=== PATIENT | male | born 1965 | race Caucasian/White ===

== ENCOUNTER 2017-03-10 14:37 | Observation (INO) | payer OTHER ==
[~2017-03-10] VITALS: Ht 182.9 cm; Wt 112.0 kg
[~2017-03-10 14:37] MED LIST: ALLO100 PO; HYDR1TAB94 PO; LEVSOD150 PO; LISI5 PO; LORA.5 PO; NAPR375 PO; Norco 10-325 T1 EACH PO; OXYACE5T PO; PROM25 PO; RXOXYACE PO
[2017-03-10 15:56] LABS: BASOPHILS ABSOLUTE AUTO 0.04 K/mm3 (0.00-0.23); BASOPHILS PERCENT AUTO 1 % (0-2); EOSINOPHILS ABSOLUTE AUTO 0.12 K/mm3 (0.00-0.68); EOSINOPHILS PERCENT AUTO 2 % (0-6); Hematocrit 43.3 % (37.0-53.0); Hemoglobin 14.3 g/dL (13.5-17.5); IMMATURE GRAN ABSOLUTE AUTO 0.04 K/mm3 (0.00-0.10); IMMATURE GRAN PERCENT AUTO 1 % (0-1); LYMPHOCYTES ABSOLUTE AUTO 1.96 K/mm3 (0.84-5.20); LYMPHOCYTES PERCENT AUTO 30 % (21-46); MONOCYTES ABSOLUTE AUTO 0.44 K/mm3 (0.16-1.47); MONOCYTES PERCENT AUTO 7 % (4-13); Mean Corpuscular HGB 29.7 pg (26.0-34.0); Mean Corpuscular Volume 90 fL (80-100); Mean Platelet Volume 11.4 fL (9.1-12.4); NEUTROPHILS ABSOLUTE AUTO 3.86 K/mm3 (1.96-9.15); NEUTROPHILS PERCENT AUTO 60 % (41-73); Platelet Count 341 K/mm3 (150-400); RDW Coefficient Variation 12.5 % (11.7-14.2); RDW Standard Deviation 41.4 fL (35.1-46.3); Red Blood Cell Count 4.82 M/mm3 (4.30-5.90); White Blood Cell Count 6.46 K/mm3 (4.00-11.30)
[2017-03-10 16:06] LABS: Albumin, Blood 3.8 g/dL (3.4-5.0); Albumin/Globulin Ratio 0.9 (0.8-1.8); Bilirubin, Total 0.4 mg/dL (0.1-1.0); Bun/Creatinine Ratio 10.8 (12.0-20.0); Calcium, Blood 8.8 mg/dL (8.5-10.1); Creatinine, Blood 1.48 mg/dL (0.60-1.20); Globulin, Blood 4.2 g/dL (2.2-4.0); Potassium, Blood 3.7 mmol/L (3.5-5.5)
[2017-03-10] MEDS ORDERED: [UNRECOGNIZED DRUG - OTHER] PO (21:33)
[2017-03-10] MEDS ORDERED: FISH OIL 1,2001 EACH PO (21:35)
[2017-03-10] MEDS ORDERED: FENO48 PO (21:35)
[2017-03-10] MEDS ORDERED: CHOL10002 PO (21:35)
[2017-03-10] MEDS ORDERED: ALPR.5 PO (21:37)
[2017-03-11] MEDS ORDERED: HYDR1TAB94 PO (13:51)
[2017-03-11] MEDS ORDERED: CEPH500 PO (13:52)
== END 2017-03-11 14:10 | disposition home or self-care (01) ==
LOC: ER 14:37 → SURS 14:38
PROVIDERS: Internal Medicine; Orthopaedic Surgery
PROC: 0HDGXZZ Extraction of Left Hand Skin, External Approach (ICD-10-PCS; principal; 2017-03-10 19:00)
DX: S61.432A Puncture wound without foreign body of left hand, initial encounter (principal); I12.9 Hypertensive chronic kidney disease with stage 1 through stage 4 chronic kidney disease, or unspecified chronic kidney disease; N18.3 Chronic kidney disease, stage 3 (moderate); E03.9 Hypothyroidism, unspecified; F41.9 Anxiety disorder, unspecified; F17.220 Nicotine dependence, chewing tobacco, uncomplicated; Z87.442 Personal history of urinary calculi; Z79.899 Other long term (current) drug therapy; W32.0XXA Accidental handgun discharge, initial encounter
CPT/HCPCS: 36415; 73130; 73200; 80053; 85025; 96365; 96374; 96375; 96376; 99285; G0378; J0330; J0690; J1100; J1170; J2250; J2405; J2765; J3010; J7030

== ENCOUNTER 2020-02-05 04:49 | Emergency (ER) | payer OTHER ==
[~2020-02-05] VITALS: Ht 182.9 cm; Wt 113.4 kg
[~2020-02-05 04:49] MED LIST changes: +ALPR.5 PO; +CEPH500 PO; +CHOL10002 PO; +FENO48 PO; +FISH OIL 1,2001 EACH PO; +[UNRECOGNIZED DRUG - OTHER] PO
[2020-02-05 05:46] LABS: BASOPHILS ABSOLUTE AUTO 0.09 K/mm3 (0.00-0.23); BASOPHILS PERCENT AUTO 1 % (0-2); EOSINOPHILS PERCENT AUTO 1 % (0-6); Hematocrit 42.9 % (37.0-53.0); Hemoglobin 14.1 g/dL (13.5-17.5); IMMATURE GRAN ABSOLUTE AUTO 0.03 K/mm3 (0.00-0.10); IMMATURE GRAN PERCENT AUTO 0 % (0-1); LYMPHOCYTES ABSOLUTE AUTO 1.94 K/mm3 (0.84-5.20); LYMPHOCYTES PERCENT AUTO 26 % (21-46); MONOCYTES ABSOLUTE AUTO 0.89 K/mm3 (0.16-1.47); MONOCYTES PERCENT AUTO 12 % (4-13); Mean Corpuscular HGB 29.3 pg (26.0-34.0); Mean Corpuscular HGB Conc 32.9 g/dL (31.5-36.5); Mean Corpuscular Volume 89 fL (80-100); Mean Platelet Volume 11.9 fL (9.1-12.4); NEUTROPHILS ABSOLUTE AUTO 4.38 K/mm3 (1.96-9.15); NEUTROPHILS PERCENT AUTO 59 % (41-73); Platelet Count 273 K/mm3 (150-400); RDW Coefficient Variation 11.9 % (11.7-14.2); RDW Standard Deviation 38.5 fL (35.1-46.3); Red Blood Cell Count 4.82 M/mm3 (4.30-5.90); White Blood Cell Count 7.43 K/mm3 (4.00-11.30)
[2020-02-05 06:01] LABS: Alanine Aminotransfer (ALT/SGP 45 U/L (12-78); Albumin, Blood 3.9 g/dL (3.4-5.0); Alk Phos 74 U/L (50-136); Anion Gap 8 mmol/L (6-16); Aspartate Aminotrans (AST/SGOT 32 U/L (12-37); Bilirubin, Total 0.6 mg/dL (0.1-1.0); Blood Urea Nitrogen 21 mg/dL (8-24); Bun/Creatinine Ratio 11.8 (12.0-20.0); CO2, Blood 25 mmol/L (21-32); Calcium, Blood 9.1 mg/dL (8.5-10.1); Chloride, Blood 106 mmol/L (98-108); Creatinine, Blood 1.78 mg/dL (0.60-1.20); Globulin, Blood 4.1 g/dL (2.2-4.0); Glomerular Filtration Rate 43 (60-); Glucose, Blood 146 mg/dL (70-99); Potassium, Blood 3.2 mmol/L (3.5-5.5); Sodium, Blood 139 mmol/L (136-145)
[2020-02-05] MEDS ORDERED: Ativan0.5 MG PO (06:24)
[2020-02-05 06:32] LABS: Troponin I <0.015 ng/mL (0.000-0.040)
== END 2020-02-05 06:28 | disposition home or self-care (01) ==
LOC: ER 04:49
PROVIDERS: Emergency Medicine
DX: F41.9 Anxiety disorder, unspecified (principal); E03.9 Hypothyroidism, unspecified; I12.9 Hypertensive chronic kidney disease with stage 1 through stage 4 chronic kidney disease, or unspecified chronic kidney disease; N18.30 Chronic kidney disease, stage 3 unspecified; I10 Essential (primary) hypertension; E78.5 Hyperlipidemia, unspecified; F17.220 Nicotine dependence, chewing tobacco, uncomplicated; Z79.899 Other long term (current) drug therapy
CPT/HCPCS: 36415; 80053; 83690; 84484; 85025; 93005; 93010; 96374; 99283-25; J2060

== ENCOUNTER 2021-01-13 19:17 | Inpatient (IN) | payer OTHER ==
[~2021-01-13] VITALS: Ht 182.9 cm; Wt 128.4 kg
[~2021-01-13 19:17] MED LIST changes: -ATOR40TA PO; -DEXA6 PO; -NASAL SPRAY88 ML; -THERA-D2000 UNIT PO
[2021-01-13 21:27] LABS: SARS-Cov-2 (COVID-19) PCR, MMC POSITIVE (NEGATIVE)
--- NOTE | 2021-01-14 04:16 | NUR ---
SUMMARY PT ARRIVED TO FLOOR IN NO DISTRESS. PT ON 4LPM NC. PT DENIES SOB. PT SPO2 >92%. PT STATES HE FEELS VERY WEAK. PT HAS SLEPT T/O SHIFT. PT CURRENTLY SLEEPING IN NO DISTRESS. CALL LIGHT IN REACH.
[2021-01-14 07:02] LABS: Anion Gap 7 mmol/L (6-16); Blood Urea Nitrogen 24 mg/dL (8-24); CO2, Blood 25 mmol/L (21-32); Calcium, Blood 8.6 mg/dL (8.5-10.1); Chloride, Blood 102 mmol/L (98-108); Glomerular Filtration Rate 49 (60-); Glucose, Blood 179 mg/dL (70-99); Potassium, Blood 4.3 mmol/L (3.5-5.5); Sodium, Blood 134 mmol/L (136-145); Troponin I <0.015 ng/mL (0.000-0.040)
[2021-01-14 07:25] LABS: Hematocrit 41.4 % (37.0-53.0); Hemoglobin 13.7 g/dL (13.5-17.5); Mean Corpuscular HGB 28.6 pg (26.0-34.0); Mean Corpuscular HGB Conc 33.1 g/dL (31.5-36.5); Mean Corpuscular Volume 86 fL (80-100); Mean Platelet Volume 12.8 fL (9.1-12.4); Platelet Count 206 K/mm3 (150-400); RDW Coefficient Variation 11.7 % (11.7-14.2); RDW Standard Deviation 37.4 fL (35.1-46.3); Red Blood Cell Count 4.79 M/mm3 (4.30-5.90); White Blood Cell Count 4.62 K/mm3 (4.00-11.30)
[2021-01-14 07:50] LABS: BAND PERCENT MAN 1 % (0-8); BASOPHILS PERCENT MAN 0 % (0-2); EOSINOPHILS PERCENT MAN 0 % (0-6); LYMPHOCYTES PERCENT MAN 13 % (21-46); METAMYELOCYTE ABSOLUTE MAN 0.04 K/mm3 (0.00-0.00); METAMYELOCYTE PERCENT MAN 1 % (0-0); MONOCYTES ABSOLUTE MAN 0.23 K/mm3 (0.16-1.47); MONOCYTES PERCENT MAN 5 % (4-13); MYELOCYTE ABSOLUTE MAN 0.04 K/mm3 (0.00-0.00); MYELOCYTE PERCENT MAN 1 % (0-0); NEUTROPHILS ABSOLUTE MAN 3.69 K/mm3 (1.96-9.15); SEG NEUTROPHILS PERCENT MAN 79 % (41-73); TOTAL CELLS COUNTED 100
--- NOTE | 2021-01-14 14:03 | NUR ---
May remove tele for shower Per T.O. from george Boyer to remove tele for shower. Order updated.
--- NOTE | 2021-01-14 16:13 | NUR ---
Shift Summary A/Ox3, pleasant and cooperative. Had shower, sats dropped to mid 80's on 3.5L. Increased oxygen to 6L, sats maintained above 90%. Denies pain, nausea, vomiting, diarrhea. Tele: NSR. Very soft spoken gentleman. Med rec request faxed to [facility]. PO liquid intake remains low, patient reports "not thirsty". Encouraged increased PO fluid intake to maintain optimal renal functions, patient verbalized understanding. No acute changes, biox in place. WCTM.
[2021-01-14] MEDS ORDERED: THERA-D2000 UNIT PO (17:15)
[2021-01-14] MEDS ORDERED: ATOR40TA PO (17:16)
[2021-01-14] MEDS ORDERED: ALLO100 PO (17:16)
[2021-01-14] MEDS ORDERED: FENO48 PO (17:17)
--- NOTE | 2021-01-15 06:23 | NUR ---
PATTERN KEEPER SUMMARY ADMITTED FOR COVID. PT IS FULL CODE. PT RESTING AT 92% ON 4 LITERS THROUGHOUT THE NIGHT. MEDICATED WITH FIRST DOSE OF REMDESIVIR. PT HAS BEEN INDEPENDENT IN THE ROOM WITHOUT COMPLAINTS OF SOB. NO OTHER CONCERNS THIS SHIFT.
--- NOTE | 2021-01-15 18:01 | NUR ---
SHIFT SUMMARY PATIENT ALERT AND ORIENTED, INDEPENDENT IN THE ROOM THIS SHIFT. PATIENT CALM AND COOPERATIVE WITH CARE. PATIENT CONTINUES TO BE ON 4L O2, SATS 88-92 THIS SHIFT. PATIENT ALTERNATES BETWEEN THE BED AND CHAIR. NO ACUTE CHANGES THIS SHIFT. PATIENT CURRENTLY SITTING UP IN BED WATCHING TELEVISION.
--- NOTE | 2021-01-16 04:21 | NUR ---
PT SLEPT WITHOUT DISTRESS. O2 4L NC IN PLACE. SATS 94%% SOB WITH EXERTION. NO EVENTS DURING NIGHT. VSS. MEDS PER MAY. CALL LIGHT WITHIN REACH.
--- NOTE | 2021-01-16 17:25 | NUR ---
SHIFT SUMMARY PATIENT ALERT AND ORIENTED, INDEPENDENT IN THE ROOM THIS SHIFT. PATIENT REMAINS ON 4L O2, O2 SAT IN THE LOW 90S. PATIENT IS CALM AND COOPERATIVE WITH CARE. NO ACUTE CHANGES THIS SHIFT. PATIENT CURRENTLY SITTING UP IN BED TALKING ON THE TELEPHONE.
--- NOTE | 2021-01-17 01:02 | NUR ---
SHIFT SUMMARY AOX4. VSS. DENIES PAIN, N/V. REPORTS BREATHING IS BETTER. SPO2 >92% ON 3.5L O2. LS HAVE FINE CRACKLES IN BASES. E/U RESP. CALL LIGHT IN REACH. HANDED OFF CARE & GAVE REPORT TO LUÍS Del Rio RN.
--- NOTE | 2021-01-17 02:31 | NUR ---
0105 TOOK OVER CARE OF PT FROM KIM, PT LYING IN BED, EYES CLOSED, APPEARS TO BE RESTING. BREATHING IS EVEN, UNLABORED. NO APPARENT SIGNS OF DISTRESS. CALL LIGHT IS IN REACH.
--- NOTE | 2021-01-17 02:46 | NUR ---
PT LYING IN BED, EYES CLOSED, APPEARS TO BE RESTING, BREATHING IS EVEN, UNLABORED. NO APPARENT SIGNS OF DISTRESS. CALL LIGHT IS IN REACH.
--- NOTE | 2021-01-17 04:18 | NUR ---
WARP WORKER CALLED, REPORTED PT NOT COMING IN ON TELE, CHANGED TELE BATTERY, CHECKED TELE PATCHES. FIRE SERVICES PLUMBER REPORTS TELE COMING IN GOOD NOW. PT LYING IN BED, AWAKE, NO APPARENT SIGNS OF DISTRESS. REQUESTED AND RECIEVED ICE WATER. CALL LIGHT IS IN REACH.
--- NOTE | 2021-01-17 04:19 | NUR ---
PT IS AAO X 4, ON 4L NC HUMIDIFIED AT 95%. PT REPORTS SOB IS IMPROVING. TELE NSR.
[2021-01-17 05:15] LABS: Hematocrit 42.7 % (37.0-53.0); Hemoglobin 13.8 g/dL (13.5-17.5); Mean Corpuscular HGB Conc 32.3 g/dL (31.5-36.5); Mean Corpuscular Volume 90 fL (80-100); Mean Platelet Volume 10.3 fL (9.1-12.4); Platelet Count 447 K/mm3 (150-400); RDW Coefficient Variation 11.9 % (11.7-14.2); RDW Standard Deviation 39.2 fL (35.1-46.3); Red Blood Cell Count 4.76 M/mm3 (4.30-5.90); White Blood Cell Count 10.63 K/mm3 (4.00-11.30)
[2021-01-17 05:48] LABS: Albumin, Blood 2.4 g/dL (3.4-5.0); Albumin/Globulin Ratio 0.5 (0.8-1.8); Bilirubin, Total 0.5 mg/dL (0.1-1.0); Bun/Creatinine Ratio 15.8 (12.0-20.0); C-REACTIVE PROTEIN, EXT RANGE 2.8 mg/dL (0.000-0.300); Calcium, Blood 8.7 mg/dL (8.5-10.1); Creatinine, Blood 1.33 mg/dL (0.60-1.20); Globulin, Blood 4.4 g/dL (2.2-4.0); Potassium, Blood 4.4 mmol/L (3.5-5.5); Total Protein, Blood 6.8 g/dL (6.4-8.2)
--- NOTE | 2021-01-17 05:59 | NUR ---
PT LYING IN BED, EYES CLOSED, APPEARS TO BE RESTING. BREATHING IS EVEN, UNLABORED. NO APPARENT SIGNS OF DISTRESS. CALL LIGHT IS IN REACH. NO OTHER CHANGES THIS SHIFT.
--- NOTE | 2021-01-17 17:15 | NUR ---
SHIFT SUMMARY PT AWAKE AT START OF SHIFT, DURING SHIFT REPORT. NO C/O. RESTING QUIETLY, HF. PT INDEPENDENT IN RM AND TO BTHRM NEEDED. CALM, FLAT AFFECT, BUT CO-OP WITH CARE. DR LEIVA IN TO SEE PT THIS AM. O2 INCREASED BACK UP TO 3.5L AT TIMES. SR ON TELE, LATER D/C'D PER ORDERS. NO S/SX OF DISTRESS NOTED. NO C/O SOB AT REST. LUNGS T/O WITH FINE CRACKLES IN THE BASES. PT UP TO SHOWER THIS AFTERNOON. PT REPORTS DOING "FINE" AT THIS TIME. NO C/O. CALL LT IN REACH.
--- NOTE | 2021-01-17 17:41 | NUR ---
PT ON 2L VIA NC STAYING AT 94%.
--- NOTE | 2021-01-18 04:04 | NUR ---
SHIFT SUMMARY PT ALERT AND ORIENTED, RESTING ON BED QUIETLY. NO DISTRESS. CALL LIGHT WHITIN REACH. KEEP MONITORING
[2021-01-18 04:35] LABS: Hematocrit 41.7 % (37.0-53.0); Hemoglobin 13.7 g/dL (13.5-17.5); Mean Corpuscular HGB 29.1 pg (26.0-34.0); Mean Corpuscular HGB Conc 32.9 g/dL (31.5-36.5); Mean Corpuscular Volume 89 fL (80-100); Mean Platelet Volume 10.4 fL (9.1-12.4); Platelet Count 462 K/mm3 (150-400); RDW Coefficient Variation 11.9 % (11.7-14.2); RDW Standard Deviation 38.1 fL (35.1-46.3); White Blood Cell Count 10.99 K/mm3 (4.00-11.30)
[2021-01-18 05:19] LABS: Albumin, Blood 2.5 g/dL (3.4-5.0); Anion Gap 6 mmol/L (6-16); Blood Urea Nitrogen 21 mg/dL (8-24); Bun/Creatinine Ratio 15.9 (12.0-20.0); CO2, Blood 27 mmol/L (21-32); Calcium, Blood 8.9 mg/dL (8.5-10.1); Chloride, Blood 104 mmol/L (98-108); Creatinine, Blood 1.32 mg/dL (0.60-1.20); Ferritin, Serum 469 ng/mL (26-388); Glomerular Filtration Rate 57 (60-); Glucose, Blood 136 mg/dL (70-99); Phosphorus, Blood 4.6 mg/dL (2.5-4.9); Potassium, Blood 4.8 mmol/L (3.5-5.5); Sodium, Blood 137 mmol/L (136-145)
[2021-01-18] MEDS ORDERED: DEXA6 PO (11:21)
[2021-01-18] MEDS ORDERED: NASAL SPRAY88 ML (11:21)
--- NOTE | 2021-01-18 16:41 | NUR ---
PATIENT D/C'D TO HOME. RX MEDICATIONS FAXED TO [facility] ON AUGUSTIN. 4LO2 PORTABLE TANK DELEVERED. O2 CONCENTRATOR TO BE DELEIVERED TO WHERE PATIENT IS STATYING WITH EX . DC INSTRUCTIONS AND EDUCATION DISCUSSED WITH PATIENT AND COPY PROVIDED. PATIENT DENIES ANY FURTHER QUESTIONS OR CONCERNS.
== END 2021-01-18 16:21 | disposition home or self-care (01) | DRG 177 ==
LOC: ER 19:17 → MEDS 22:32
PROVIDERS: Internal Medicine; Physician Assistant; ADMIT Family Medicine
PROC: 8E0ZXY6 Isolation (ICD-10-PCS; principal; 2021-01-13)
PROC: 3E0333Z Introduction of Anti-inflammatory into Peripheral Vein, Percutaneous Approach (ICD-10-PCS; 2021-01-14)
PROC: XW033E5 Introduction of Remdesivir Anti-infective into Peripheral Vein, Percutaneous Approach, New Technology Group 5 (ICD-10-PCS; 2021-01-14)
DX: U07.1 COVID-19 (principal); J12.82 Pneumonia due to coronavirus disease 2019; J96.01 Acute respiratory failure with hypoxia; R65.10 Systemic inflammatory response syndrome (SIRS) of non-infectious origin without acute organ dysfunction; E03.9 Hypothyroidism, unspecified; R79.1 Abnormal coagulation profile; I12.9 Hypertensive chronic kidney disease with stage 1 through stage 4 chronic kidney disease, or unspecified chronic kidney disease; N18.30 Chronic kidney disease, stage 3 unspecified; M10.9 Gout, unspecified; Z28.21 Immunization not carried out because of patient refusal; E78.5 Hyperlipidemia, unspecified; Z79.899 Other long term (current) drug therapy
CPT/HCPCS: 36415; 80048; 80053; 80069; 82728; 84484; 85025; 85027; 85379; 86140; 93005; 93010; 94761; 94762; 99285-25; A9270; J1100; J1650; J7040; U0004

== ENCOUNTER → 2021-01-13 | Outpatient (CLI) | payer OTHER ==
[~2021-01-13] MED LIST changes: +ATOR40TA PO; +Ativan0.5 MG PO; +DEXA6 PO; +FISH OIL 1,2001 EAC1 PO; -FISH OIL 1,2001 EACH PO; +NASAL SPRAY88 ML; +THERA-D2000 UNIT PO
[2021-01-13 17:47] LABS: BASOPHILS ABSOLUTE AUTO 0.01 K/mm3 (0.00-0.23); BASOPHILS PERCENT AUTO 0 % (0-2); EOSINOPHILS PERCENT AUTO 0 % (0-6); Hematocrit 42.4 % (37.0-53.0); IMMATURE GRAN ABSOLUTE AUTO 0.04 K/mm3 (0.00-0.10); IMMATURE GRAN PERCENT AUTO 1 % (0-1); LYMPHOCYTES ABSOLUTE AUTO 0.68 K/mm3 (0.84-5.20); LYMPHOCYTES PERCENT AUTO 10 % (21-46); MONOCYTES ABSOLUTE AUTO 0.45 K/mm3 (0.16-1.47); MONOCYTES PERCENT AUTO 6 % (4-13); Mean Corpuscular HGB 28.8 pg (26.0-34.0); Mean Corpuscular Volume 87 fL (80-100); Mean Platelet Volume 11.6 fL (9.1-12.4); NEUTROPHILS ABSOLUTE AUTO 5.99 K/mm3 (1.96-9.15); NEUTROPHILS PERCENT AUTO 84 % (41-73); Platelet Count 231 K/mm3 (150-400); RDW Coefficient Variation 12.1 % (11.7-14.2); RDW Standard Deviation 38.8 fL (35.1-46.3); Red Blood Cell Count 4.86 M/mm3 (4.30-5.90); White Blood Cell Count 7.17 K/mm3 (4.00-11.30)
[2021-01-13 17:58] LABS: Alanine Aminotransfer (ALT/SGP 41 U/L (12-78); Albumin, Blood 3.1 g/dL (3.4-5.0); Albumin/Globulin Ratio 0.7 (0.8-1.8); Alk Phos 68 U/L (40-126); Anion Gap 11 mmol/L (6-16); Aspartate Aminotrans (AST/SGOT 57 U/L (12-37); Bilirubin, Total 0.6 mg/dL (0.1-1.0); Blood Urea Nitrogen 21 mg/dL (8-24); Bun/Creatinine Ratio 10.9 (12.0-20.0); CO2, Blood 27 mmol/L (21-32); Calcium, Blood 8.6 mg/dL (8.5-10.1); Chloride, Blood 97 mmol/L (98-108); Creatinine, Blood 1.92 mg/dL (0.60-1.20); Globulin, Blood 4.5 g/dL (2.2-4.0); Glomerular Filtration Rate 37 (60-); Glucose, Blood 110 mg/dL (70-99); Potassium, Blood 4.4 mmol/L (3.5-5.5); Sodium, Blood 135 mmol/L (136-145); Total Protein, Blood 7.6 g/dL (6.4-8.2)
[2021-01-13 18:00] LABS: Troponin I <0.017 ng/mL (0.000-0.040)
== END | disposition home or self-care (01) ==
LOC: LAB SHORT 17:39 → LAB 17:39
PROVIDERS: Chiropractor
DX: R09.02 Hypoxemia (principal); Z20.822 Contact with and (suspected) exposure to COVID-19
CPT/HCPCS: 80053; 84484; 85025; 85379

== ENCOUNTER 2022-08-03 04:23 | Emergency (ER) | payer OTHER ==
[~2022-08-03] VITALS: Ht 182.9 cm; Wt 124.7 kg
[~2022-08-03 04:23] MED LIST changes: +ATOR40TA PO; +DEXA6 PO; +NASAL SPRAY88 ML; +THERA-D2000 UNIT PO
[2022-08-03 05:32] LABS: BASOPHILS PERCENT AUTO 1 % (0-2); EOSINOPHILS ABSOLUTE AUTO 0.16 K/mm3 (0.00-0.68); EOSINOPHILS PERCENT AUTO 2 % (0-6); Hematocrit 42.8 % (37.0-53.0); Hemoglobin 14.2 g/dL (13.5-17.5); IMMATURE GRAN ABSOLUTE AUTO 0.03 K/mm3 (0.00-0.10); IMMATURE GRAN PERCENT AUTO 0 % (0-1); LYMPHOCYTES ABSOLUTE AUTO 1.73 K/mm3 (0.84-5.20); LYMPHOCYTES PERCENT AUTO 22 % (21-46); MONOCYTES ABSOLUTE AUTO 0.85 K/mm3 (0.16-1.47); MONOCYTES PERCENT AUTO 11 % (4-13); Mean Corpuscular HGB 29.2 pg (26.0-34.0); Mean Corpuscular HGB Conc 33.2 g/dL (31.5-36.5); Mean Corpuscular Volume 88 fL (80-100); NEUTROPHILS PERCENT AUTO 64 % (41-73); Platelet Count 293 K/mm3 (150-400); RDW Coefficient Variation 12.4 % (11.7-14.2); RDW Standard Deviation 40.2 fL (35.1-46.3); Red Blood Cell Count 4.86 M/mm3 (4.30-5.90); White Blood Cell Count 7.97 K/mm3 (4.00-11.30)
[2022-08-03 05:50] LABS: Bun/Creatinine Ratio 10.4 (12.0-20.0); C-REACTIVE PROTEIN, EXT RANGE 0.792 mg/dL (0.000-0.300); Calcium, Blood 8.8 mg/dL (8.5-10.1); Creatinine, Blood 1.44 mg/dL (0.60-1.20)
[2022-08-03] MEDS ORDERED: Percocet 5-3251 EACH PO (06:25)
[2022-08-03] MEDS ORDERED: COLCHICINE0.6 MG PO (06:25)
[2022-08-03 07:15] VITALS: BP 151/101
== END 2022-08-03 07:56 | disposition home or self-care (01) ==
LOC: ER 04:23
PROVIDERS: Emergency Medicine
DX: M25.561 Pain in right knee (principal); I12.9 Hypertensive chronic kidney disease with stage 1 through stage 4 chronic kidney disease, or unspecified chronic kidney disease; N18.30 Chronic kidney disease, stage 3 unspecified; E03.9 Hypothyroidism, unspecified; E78.5 Hyperlipidemia, unspecified; F17.220 Nicotine dependence, chewing tobacco, uncomplicated; Z86.16 Personal history of COVID-19; Z87.442 Personal history of urinary calculi; Z79.899 Other long term (current) drug therapy
CPT/HCPCS: 73562-RT; 80048; 85025; 85651; 86140; A9270

== ENCOUNTER 2022-10-30 18:18 | Emergency (ER) | payer OTHER ==
[~2022-10-30] VITALS: Ht 182.9 cm; Wt 151.1 kg
[~2022-10-30 18:18] MED LIST changes: +COLCHICINE0.6 MG PO; +Percocet 5-3251 EACH PO
[2022-10-30 18:25] VITALS: BP 153/84
== END 2022-10-30 19:45 | disposition home or self-care (01) ==
LOC: ER 18:18
DX: M25.522 Pain in left elbow (principal); M25.512 Pain in left shoulder; Z79.899 Other long term (current) drug therapy
CPT/HCPCS: 96372; 99283-25; J1885

== ENCOUNTER 2022-11-03 09:28 | Emergency (ER) | payer OTHER ==
[~2022-11-03] VITALS: Ht 182.9 cm; Wt 140.6 kg
[2022-11-03 09:53] VITALS: BP 142/84
[2022-11-03] MEDS ORDERED: HYDR1TAB94 PO (09:59)
[2022-11-03] MEDS ORDERED: COLCHICINE0.6 MG PO (09:59)
== END 2022-11-03 10:20 | disposition home or self-care (01) ==
LOC: ER 09:28
DX: M10.9 Gout, unspecified (principal); I12.9 Hypertensive chronic kidney disease with stage 1 through stage 4 chronic kidney disease, or unspecified chronic kidney disease; N18.30 Chronic kidney disease, stage 3 unspecified; E03.9 Hypothyroidism, unspecified; E78.5 Hyperlipidemia, unspecified; F17.220 Nicotine dependence, chewing tobacco, uncomplicated; Z79.890 Hormone replacement therapy; Z79.899 Other long term (current) drug therapy
CPT/HCPCS: 99283

== ENCOUNTER → 2023-01-02 | Outpatient (CLI) | payer OTHER | END | disposition home or self-care (01) | LOC: LAB 15:19 → LAB SHORT 15:19 | DX: M10.9 Gout, unspecified (principal) | CPT/HCPCS: 84550 ==

== ENCOUNTER 2023-01-11 12:24 | Emergency (ER) | payer OTHER ==
[~2023-01-11] VITALS: Ht 182.9 cm; Wt 138.3 kg
[2023-01-11 12:47] VITALS: BP 164/89
[2023-01-11] MEDS ORDERED: Prednisone20 MG PO (12:54)
[2023-01-11] MEDS ORDERED: COLCHICINE0.6 MG PO (12:54)
== END 2023-01-11 12:56 | disposition home or self-care (01) ==
LOC: ER 12:24
DX: M10.9 Gout, unspecified (principal); Z79.899 Other long term (current) drug therapy; F17.220 Nicotine dependence, chewing tobacco, uncomplicated
CPT/HCPCS: 99283

== ENCOUNTER 2023-04-06 17:52 | Emergency (ER) | payer OTHER ==
[~2023-04-06] VITALS: Ht 167.6 cm; Wt 131.5 kg
[~2023-04-06 17:52] MED LIST changes: +Prednisone20 MG PO
[2023-04-06 18:34] VITALS: BP 140/99
[2023-04-06] MEDS ORDERED: Prednisone20 MG PO (19:31)
[2023-04-06] MEDS ORDERED: Indomethacin50 MG PO (19:31)
== END 2023-04-06 19:41 | disposition home or self-care (01) ==
LOC: ER 17:52
DX: M10.9 Gout, unspecified (principal); F17.220 Nicotine dependence, chewing tobacco, uncomplicated; Z79.890 Hormone replacement therapy; Z79.899 Other long term (current) drug therapy; Z79.52 Long term (current) use of systemic steroids
CPT/HCPCS: 99283; A9270; J7512

== ENCOUNTER 2023-04-20 21:29 | Emergency (ER) | payer OTHER ==
[~2023-04-20] VITALS: Ht 182.9 cm; Wt 136.1 kg
[~2023-04-20 21:29] MED LIST changes: +Indomethacin50 MG PO
[2023-04-20 22:33] LABS: BASOPHILS ABSOLUTE AUTO 0.07 K/mm3 (0.00-0.23); BASOPHILS PERCENT AUTO 1 % (0-2); EOSINOPHILS ABSOLUTE AUTO 0.09 K/mm3 (0.00-0.68); EOSINOPHILS PERCENT AUTO 1 % (0-6); Hematocrit 43.6 % (37.0-53.0); Hemoglobin 14.3 g/dL (13.5-17.5); IMMATURE GRAN ABSOLUTE AUTO 0.05 K/mm3 (0.00-0.10); IMMATURE GRAN PERCENT AUTO 1 % (0-1); LYMPHOCYTES ABSOLUTE AUTO 1.72 K/mm3 (0.84-5.20); LYMPHOCYTES PERCENT AUTO 17 % (21-46); MONOCYTES ABSOLUTE AUTO 0.67 K/mm3 (0.16-1.47); MONOCYTES PERCENT AUTO 7 % (4-13); Mean Corpuscular HGB 29.9 pg (26.0-34.0); Mean Corpuscular HGB Conc 32.8 g/dL (31.5-36.5); Mean Corpuscular Volume 91 fL (80-100); Mean Platelet Volume 11.9 fL (9.1-12.4); NEUTROPHILS ABSOLUTE AUTO 7.76 K/mm3 (1.96-9.15); NEUTROPHILS PERCENT AUTO 75 % (41-73); Platelet Count 248 K/mm3 (150-400); RDW Coefficient Variation 12.5 % (11.7-14.2); RDW Standard Deviation 41.9 fL (35.1-46.3); Red Blood Cell Count 4.79 M/mm3 (4.30-5.90); White Blood Cell Count 10.36 K/mm3 (4.00-11.30)
[2023-04-20 23:08] LABS: Albumin, Blood 3.8 g/dL (3.4-5.0); Albumin/Globulin Ratio 0.9 (0.8-1.8); Bilirubin, Total 0.6 mg/dL (0.1-1.0); Bun/Creatinine Ratio 13.1 (12.0-20.0); Calcium, Blood 9.3 mg/dL (8.5-10.1); Creatinine, Blood 1.53 mg/dL (0.60-1.20); Globulin, Blood 4.3 g/dL (2.2-4.0); Potassium, Blood 3.8 mmol/L (3.5-5.5); Total Protein, Blood 8.1 g/dL (6.4-8.2)
[2023-04-20] MEDS ORDERED: Mag Hydrox/AL Hydrox/Simeth 30 ML UDC PO ONE (23:10)
[2023-04-20] MEDS ORDERED: Lidocaine 2% Viscous Soln 15 ML UDC PO ONE (23:10)
[2023-04-21] VITALS: BP 149/79
== END 2023-04-21 00:23 | disposition home or self-care (01) ==
LOC: ER 21:29
PROVIDERS: Student in an Organized Health Care Education/Training Program
DX: R07.89 Other chest pain (principal); T39.395A Adverse effect of other nonsteroidal anti-inflammatory drugs [NSAID], initial encounter; N18.9 Chronic kidney disease, unspecified; F17.220 Nicotine dependence, chewing tobacco, uncomplicated; Z79.899 Other long term (current) drug therapy; Z79.890 Hormone replacement therapy
CPT/HCPCS: 71046; 80053; 83880; 84484; 85025; 93005; 93010; 99283-25; A9270

== ENCOUNTER 2023-10-27 09:29 | Emergency (ER) | payer OTHER ==
[~2023-10-27] VITALS: Ht 182.9 cm; Wt 117.9 kg
[2023-10-27 10:41] VITALS: BP 156/101
[2023-10-27 11:07] LABS: BASOPHILS ABSOLUTE AUTO 0.07 K/mm3 (0.00-0.23); BASOPHILS PERCENT AUTO 1 % (0-2); EOSINOPHILS PERCENT AUTO 1 % (0-6); Hematocrit 44.9 % (37.0-53.0); Hemoglobin 14.7 g/dL (13.5-17.5); IMMATURE GRAN ABSOLUTE AUTO 0.04 K/mm3 (0.00-0.10); IMMATURE GRAN PERCENT AUTO 0 % (0-1); LYMPHOCYTES PERCENT AUTO 17 % (21-46); MONOCYTES ABSOLUTE AUTO 0.85 K/mm3 (0.16-1.47); MONOCYTES PERCENT AUTO 9 % (4-13); Mean Corpuscular HGB 29.8 pg (26.0-34.0); Mean Corpuscular HGB Conc 32.7 g/dL (31.5-36.5); Mean Corpuscular Volume 91 fL (80-100); Mean Platelet Volume 10.2 fL (9.1-12.4); NEUTROPHILS ABSOLUTE AUTO 6.83 K/mm3 (1.96-9.15); NEUTROPHILS PERCENT AUTO 72 % (41-73); Platelet Count 328 K/mm3 (150-400); RDW Coefficient Variation 12.9 % (11.7-14.2); Red Blood Cell Count 4.93 M/mm3 (4.30-5.90); White Blood Cell Count 9.49 K/mm3 (4.00-11.30)
[2023-10-27 11:26] LABS: Albumin, Blood 3.9 g/dL (3.4-5.0); Albumin/Globulin Ratio 0.8 (0.8-1.8); Bilirubin, Total 0.6 mg/dL (0.1-1.0); Calcium, Blood 8.8 mg/dL (8.5-10.1); Creatinine, Blood 1.74 mg/dL (0.60-1.20); Globulin, Blood 4.7 g/dL (2.2-4.0); Potassium, Blood 3.9 mmol/L (3.5-5.5); Total Protein, Blood 8.6 g/dL (6.4-8.2)
[2023-10-27] MEDS ORDERED: Diphth,Pertuss(Acell),Tet Vac 0.5 ML VIAL IM ONE (11:45)
[2023-10-27] MEDS ORDERED: CeFAZolin Sodium 2,000 MG in NS 100 ML IV ONE (11:50)
[2023-10-27] MEDS ORDERED: CEPH500 PO (12:08)
== END 2023-10-27 12:44 | disposition home or self-care (01) ==
LOC: ER 09:29
PROVIDERS: Physician Assistant
DX: L03.114 Cellulitis of left upper limb (principal); E78.5 Hyperlipidemia, unspecified; Z87.891 Personal history of nicotine dependence; Z79.52 Long term (current) use of systemic steroids; Z79.899 Other long term (current) drug therapy; Z88.1 Allergy status to other antibiotic agents
CPT/HCPCS: 73130; 80053; 85025; 90471; 90715; 96365; 99283-25; J0690

== ENCOUNTER → 2024-06-26 | Outpatient (CLI) | payer OTHER ==
[2024-06-26 17:55] LABS: BASOPHILS ABSOLUTE AUTO 0.08 K/mm3 (0.00-0.23); BASOPHILS PERCENT AUTO 1 % (0-2); EOSINOPHILS PERCENT AUTO 5 % (0-6); Hematocrit 39.7 % (37.0-53.0); Hemoglobin 13.1 g/dL (13.5-17.5); IMMATURE GRAN ABSOLUTE AUTO 0.03 K/mm3 (0.00-0.10); IMMATURE GRAN PERCENT AUTO 0 % (0-1); LYMPHOCYTES ABSOLUTE AUTO 2.24 K/mm3 (0.84-5.20); LYMPHOCYTES PERCENT AUTO 28 % (21-46); MONOCYTES ABSOLUTE AUTO 0.45 K/mm3 (0.16-1.47); MONOCYTES PERCENT AUTO 6 % (4-13); Mean Corpuscular HGB 30.3 pg (26.0-34.0); Mean Corpuscular Volume 92 fL (80-100); NEUTROPHILS ABSOLUTE AUTO 4.74 K/mm3 (1.96-9.15); NEUTROPHILS PERCENT AUTO 60 % (41-73); Platelet Count 374 K/mm3 (150-400); RDW Coefficient Variation 12.5 % (11.7-14.2); RDW Standard Deviation 41.8 fL (35.1-46.3); Red Blood Cell Count 4.33 M/mm3 (4.30-5.90); White Blood Cell Count 7.94 K/mm3 (4.00-11.30)
[2024-06-26 18:06] LABS: Albumin, Blood 3.9 g/dL (3.4-5.0); Albumin/Globulin Ratio 0.8 (0.8-1.8); Bilirubin, Total 0.4 mg/dL (0.1-1.0); Bun/Creatinine Ratio 7.1 (12.0-20.0); Calcium, Blood 9.3 mg/dL (8.5-10.1); Creatinine, Blood 1.84 mg/dL (0.60-1.20); Globulin, Blood 4.7 g/dL (2.2-4.0); Potassium, Blood 3.7 mmol/L (3.5-5.5); Total Protein, Blood 8.6 g/dL (6.4-8.2); Uric Acid, Blood 8.4 mg/dL (3.5-7.2)
== END ==
LOC: LAB 17:50 → LAB SHORT 17:50
PROVIDERS: Emergency Medicine
DX: M10.9 Gout, unspecified (principal)
CPT/HCPCS: 80053; 84550; 85025

== ENCOUNTER 2024-07-22 10:28 | Emergency (ER) | payer OTHER ==
[~2024-07-22] VITALS: Ht 177.8 cm; Wt 125.6 kg
[2024-07-22 10:38] VITALS: BP 190/111
[2024-07-22] MEDS ORDERED: PredniSONE 20 MG Tab PO ONE ×2 (10:45→15:25)
[2024-07-22] MEDS ORDERED: Ondansetron HCl 2 MG / ML 2ML Vial IV ONE ×2 (10:45→15:25)
[2024-07-22] MEDS ORDERED: Morphine Sulfate 4 MG/1 ML Injection IV ONE ×2 (10:45→15:25)
[2024-07-22 11:20] LABS: BASOPHILS ABSOLUTE AUTO 0.07 K/mm3 (0.00-0.23); BASOPHILS PERCENT AUTO 1 % (0-2); EOSINOPHILS ABSOLUTE AUTO 0.21 K/mm3 (0.00-0.68); EOSINOPHILS PERCENT AUTO 2 % (0-6); Hematocrit 39.6 % (37.0-53.0); Hemoglobin 12.8 g/dL (13.5-17.5); IMMATURE GRAN ABSOLUTE AUTO 0.03 K/mm3 (0.00-0.10); IMMATURE GRAN PERCENT AUTO 0 % (0-1); LYMPHOCYTES ABSOLUTE AUTO 1.57 K/mm3 (0.84-5.20); LYMPHOCYTES PERCENT AUTO 16 % (21-46); MONOCYTES ABSOLUTE AUTO 0.76 K/mm3 (0.16-1.47); MONOCYTES PERCENT AUTO 8 % (4-13); Mean Corpuscular HGB Conc 32.3 g/dL (31.5-36.5); Mean Corpuscular Volume 93 fL (80-100); Mean Platelet Volume 10.4 fL (9.1-12.4); NEUTROPHILS ABSOLUTE AUTO 7.28 K/mm3 (1.96-9.15); NEUTROPHILS PERCENT AUTO 73 % (41-73); Platelet Count 345 K/mm3 (150-400); RDW Coefficient Variation 12.7 % (11.7-14.2); RDW Standard Deviation 43.2 fL (35.1-46.3); Red Blood Cell Count 4.27 M/mm3 (4.30-5.90); White Blood Cell Count 9.92 K/mm3 (4.00-11.30)
[2024-07-22 11:41] LABS: Albumin, Blood 3.8 g/dL (3.4-5.0); Albumin/Globulin Ratio 0.8 (0.8-1.8); Bilirubin, Total 0.6 mg/dL (0.1-1.0); Bun/Creatinine Ratio 9.5 (12.0-20.0); Calcium, Blood 9.1 mg/dL (8.5-10.1); Creatinine, Blood 1.58 mg/dL (0.60-1.20); Globulin, Blood 4.9 g/dL (2.2-4.0); Potassium, Blood 3.8 mmol/L (3.5-5.5); Total Protein, Blood 8.7 g/dL (6.4-8.2); Uric Acid, Blood 7.4 mg/dL (3.5-7.2)
[2024-07-22] MEDS ORDERED: ALLO100 PO (15:39)
[2024-07-22] MEDS ORDERED: HYDROCODONE-AC1 EA10 PO (15:39)
[2024-07-22] MEDS ORDERED: Prednisone20 MG PO (15:39)
== END 2024-07-22 15:50 | disposition home or self-care (01) ==
LOC: ER 10:28
PROVIDERS: Emergency Medicine
DX: M10.9 Gout, unspecified (principal); E78.5 Hyperlipidemia, unspecified; Z87.891 Personal history of nicotine dependence; Z88.8 Allergy status to other drugs, medicaments and biological substances; Z79.890 Hormone replacement therapy; Z79.899 Other long term (current) drug therapy
CPT/HCPCS: 80053; 84550; 85025; 96374; 96375; 99283-25; J2270; J2405; J7512